=== PATIENT | male | born 1985 | race Two or more races ===

== ENCOUNTER 2019-07-31 08:04 | Day surgery (SDC) | payer OTHER ==
[~2019-07-31 08:04] MED LIST: CLONAZEPAM0.5 MG PO; HORIZANT300 MG PO; LEXAPRO5 MG PO; RESTORIL30 M1 PO; SINGULAIR10 MG PO; VALSARTAN-HCTZ1 EAC2 PO; ZYPREXA2.5 MG PO
[2019-07-31] MEDS ORDERED: PERCOCET 5-3251 EACH PO (11:38)
[2019-07-31] MEDS ORDERED: COLACE100 MG PO (11:38)
== END 2019-07-31 14:30 | disposition home or self-care (01) ==
LOC: CIR.AMB 08:04 → ADM 09:30 → CIR.AMB 09:30
PROVIDERS: ATTEND Surgery
DX: K60.1 Chronic anal fissure (principal)